=== PATIENT | male | born 1950 | race Caucasian/White ===

== ENCOUNTER 2016-04-04 15:25 | Emergency (ER) | payer OTHER ==
[~2016-04-04] VITALS: Ht 182.9 cm; Wt 97.5 kg
[2016-04-04] MEDS ORDERED: ASPI1TAB PO (15:45)
[2016-04-04] MEDS ORDERED: ATEN25TA PO (15:45)
[2016-04-04] MEDS ORDERED: NEXI20CA PO (15:45)
[2016-04-04] MEDS ORDERED: ASPIRIN 81 MG CHEW TABLET PO ONE (17:15)
[2016-04-04 17:21] LABS: BASO % 0.3 % (0.0-1.0); EOS # 0.2 K/mm3 (0.0-0.50); LARGE UNSTAINED CELL # 0.2 K/mm3 (0.0-0.4); LARGE UNSTAINED CELL % 2.5 % (0.0-4.0); LYMPH # 1.5 K/mm3 (1.5-4.5); LYMPH % 24.8 % (24.0-44.0); MEAN CORPUSCULAR HEMOGLOBIN 29.6 pg (27.0-33.0); MEAN CORPUSCULAR HGB CONC 33.2 g/dl (32.0-36.5); MEAN CORPUSCULAR VOLUME 89.2 fl (80.0-96.0); MONO # 0.4 K/mm3 (0.0-0.8); MONO % 6.2 % (0.0-5.0); NEUTROPHILS # 3.6 K/mm3 (1.8-7.7); NEUTROPHILS % 62.3 % (36.0-66.0); PLATELET COUNT, AUTOMATED 188 k/mm3 (150-450); RED CELL DISTRIBUTION WIDTH 12.9 % (11.5-14.5); WHITE BLOOD COUNT 5.8 K/mm3 (4.0-10.0)
[2016-04-04 17:34] LABS: ANION GAP 7 MEQ/L (8-16); BLOOD UREA NITROGEN 20 MG/DL (7-18); CALCIUM LEVEL 8.9 MG/DL (8.8-10.2); CARBON DIOXIDE LEVEL 30 MEQ/L (21-32); CHLORIDE LEVEL 107 MEQ/L (98-107); CREATININE FOR GFR 1.02 MG/DL (0.70-1.30); GLOMERULAR FILTRATION RATE > 60.0 (>49); GLUCOSE, FASTING 95 MG/DL (80-110); POTASSIUM SERUM 4.1 MEQ/L (3.5-5.1); SODIUM LEVEL 144 MEQ/L (136-145)
--- NOTE | 2016-04-04 17:52 | REP ---
Chest one-view HISTORY: Chest pain Comparison: None The lungs are clear. The heart is normal in size. The pulmonary vasculature is normal in appearance. Impression: No acute disease. Signed by Jorge Luke MD 04/04/2016 05:43 P
[2016-04-04] MEDS ORDERED: PANTOPRAZOLE 40MG INJ (PROTONIX) (C9113) IV ONE (18:15)
[2016-04-04] MEDS ORDERED: GI COCKTAIL 50ML BTL(HYOSCYAMINE/MAALOX/LIDOCAINE VISCOUS)(1:3:1) PO ONE (18:15)
[2016-04-04] MEDS ORDERED: PROT1TAB2 PO (18:42)
[2016-04-04 19:44] VITALS: BP 118/69
--- NOTE | 2016-04-04 22:41 | ECGEPIP ---
Stationary ECG Study [facility] Test Date: 2016-04-04 Pat Name: GARY HONG Department: Room: - Gender: M [employer] Estimator: INÉS : 1950 Requested By: Cecy Rao Order Number: [id number] Reading MD: Jayy Drummond Measurements Intervals [place] Rate: 58 P: 69 [place]: 197 QRS: 18 QRSD: 91 T: 20 QT: 425 QTc: 418 Interpretive Statements SINUS BRADYCARDIA Comparison tracing not on file Electronically Signed On 04-04-2016 22:41:26 EST by Jayy Drummond
== END 2016-04-04 19:46 | disposition home or self-care (01) ==
LOC: M ED 15:25
DX: K21.9 Gastro-esophageal reflux disease without esophagitis (principal); R07.9 Chest pain, unspecified; I48.91 Unspecified atrial fibrillation; Z79.82 Long term (current) use of aspirin; Z79.899 Other long term (current) drug therapy
CPT/HCPCS: 36415; 71010; 80048; 82550; 82553; 83880; 85025; 93005; 93041; 94760; 96374; 99285; C9113